=== PATIENT | male | born 2000 | race Two or more races ===

== ENCOUNTER 2025-02-02 11:34 | Emergency (ER) | payer OTHER ==
[~2025-02-02] VITALS: Ht 160 cm; Wt 84.4 kg
[2025-02-02] MEDS ORDERED: KETAMINE HCL 500 MG/5 ML VIAL ONE (12:12)
[2025-02-02] MEDS: KETAMINE HCL 500 MG/10 ML INJ IM ONE (12:13)
[2025-02-02] MEDS ORDERED: ONDANSETRON ODT 4 MG TAB.RAPDIS ONE (12:14)
[2025-02-02] MEDS: ONDANSETRON ODT 4 MG TAB.RAPDIS SL ONE (12:18)
[2025-02-02] MEDS ORDERED: TDAP DIPH,PERTUSS,TET VAC/PF 0.5 ML DISP.SYRIN IM ONE (14:35)
[2025-02-02] MEDS ORDERED: AMOXICILLIN-CLAVUL 875-125MG TABLET ONE (14:35)
[2025-02-02] MEDS: TDAP DIPH,PERTUSS,TET VAC/PF 0.5 ML DISP.SYRIN IM ONE (14:41)
[2025-02-02] MEDS: AMOXICILLIN-CLAVUL 875-125MG TABLET PO ONE (15:15)
[2025-02-02] MEDS ORDERED: AMOX-430 PO (15:23)
[2025-02-02] MEDS ORDERED: IBUP-1955 PO (15:23)
[2025-02-02 16:10] VITALS: BP 113/75; O2SAT 98
== END 2025-02-02 16:11 | disposition home or self-care (01) ==
LOC: ER 11:34
DX: S91.331A Puncture wound without foreign body, right foot, initial encounter (principal); F41.9 Anxiety disorder, unspecified; W45.8XXA Other foreign body or object entering through skin, initial encounter; Y93.89 Activity, other specified; Y92.89 Other specified places as the place of occurrence of the external cause; Y99.8 Other external cause status
CPT/HCPCS: 99285; 73620; 90715; 90471; J3490 ×2; A4606; A4663; Q0162